=== PATIENT | female | born 1955 | race African-American/Black ===

== ENCOUNTER 2016-12-25 06:01 | Day surgery (SDC) | payer BC ==
--- NOTE | ~2016-12-25 | EGD ---
EGD REPORT [facility] [address] [address] NAME: PHILLY FERNANDEZ : [birth year] STATUS : REG [facility] [place] PAT#: [id number] AGE: 61 ADM/REG DATE : 12/25/16 MR#: [id number] REPORT SERV DATE: 12/25/16 DICTATED BY: JASIEL GALLARDO DATE: 12/25/16 REPORT STATUS : Draft TRANSCRIBED BY: [facility] DATE: 12/25/16 Endoscopy Center Patient Name: Philly Fernandez Date of : 1955 Attending MD: JASIEL GALLARDO MD Procedure Date No Time: 12/25/2016 Procedure: Colonoscopy Indications: Dysphagia, Personal history of malignant neoplasm of the colon Medicines: Propofol per Anesthesia Complications: No immediate complications. Procedure: After I obtained informed consent, the scope was passed under direct vision. Throughout the procedure, the patient's blood pressure, pulse, and oxygen saturations were monitored continuously. The GIF H190 [id number] was introduced through the mouth, and advanced to the second part of duodenum. The upper GI endoscopy was accomplished without difficulty. The patient tolerated the procedure well. After I obtained informed consent, the scope was passed under direct vision. Throughout the procedure, the patient's blood pressure, pulse, and oxygen saturations were monitored continuously. Findings: Internal hemorrhoids were found during retroflexion and were Grade I (internal hemorrhoids that do not prolapse). The colon (entire examined portion) appeared normal. Impression: - Hemorrhoids. Recommendation: - Patient has a contact number available for emergencies. The signs and symptoms of potential delayed complications were discussed with the patient. Return to normal activities tomorrow. Written discharge instructions were provided to the patient. - Clear liquid diet today. - Patient has a contact number available for emergencies. The signs and symptoms of potential delayed complications were discussed with the patient. Return to normal activities tomorrow. Written discharge instructions were provided to the patient. - Continue present medications. - Discharge patient to home (ambulatory). - Repeat colonoscopy in 3 years for surveillance. EGD REPORT [facility] [address] [place]. [address] NAME: PHILLY FERNANDEZ : [birth year] STATUS : REG [facility]#: [id number] AGE: 61 ADM/REG DATE : 12/25/16 MR#: [id number] REPORT SERV DATE: 12/25/16 DICTATED BY: JASIEL GALLARDO DATE: 12/25/16 REPORT STATUS : Draft TRANSCRIBED BY: [employer] DATE: 12/25/16 Diagnosis Code(s): --- Professional --- K64.9, Unspecified hemorrhoids Z85.038, Personal history of other malignant neoplasm of large intestine Jasiel Gallardo MD JASIEL GALLARDO MD 12/25/2016 8:03 AM Number of Addenda: 0 Note Initiated On: 12/25/2016 7:35 AM Scope Withdrawal Time 0 hours 7 minutes 11 seconds [address] [facility] [place] [address]
--- NOTE | ~2016-12-25 | EGD ---
EGD REPORT [facility] [address] [address] NAME: PHILLY FERNANDEZ : [birth year] STATUS : REG [facility]#: [id number] AGE: 61 ADM/REG DATE : 12/25/16 MR#: [id number] REPORT SERV DATE: 12/25/16 DICTATED BY: JASIEL GALLARDO DATE: 12/25/16 REPORT STATUS : Draft [facility] DATE: 12/25/16 Endoscopy Center Patient Name: Philly Fernandez Date of : 1955 Attending MD: JASIEL GALLARDO MD Procedure Date No Time: 12/25/2016 Procedure: Upper GI endoscopy Indications: Dysphagia, Suspected esophageal reflux Medicines: Propofol per Anesthesia Complications: No immediate complications. Procedure: After obtaining informed consent, the endoscope was passed under direct vision. Throughout the procedure, the patient's blood pressure, pulse, and oxygen saturations were monitored continuously. The PCF [id number] was introduced through the anus and advanced to the second part of duodenum. After obtaining informed consent, the endoscope was passed under direct vision. Throughout the procedure, the patient's blood pressure, pulse, and oxygen saturations were monitored continuously. The upper GI endoscopy was accomplished without difficulty. The patient tolerated the procedure well. The upper GI endoscopy was accomplished without difficulty. The patient tolerated the procedure well. Findings: A medium-sized hiatus hernia was present. A mild Schatzki ring (acquired) was found at the gastroesophageal junction. A guidewire was placed and the scope was withdrawn. Dilation was performed with a Savary dilator with no resistance at 54 Fr. Diffuse mild inflammation characterized by erosions and erythema was found in the stomach. The examined duodenum was normal. Impression: - Hiatus hernia. - Mild Schatzki ring. Dilated. - Chronic gastritis. - Normal examined duodenum. Recommendation: - Patient has a contact number available for emergencies. The signs and symptoms of potential delayed complications were discussed with the patient. Return to normal activities tomorrow. Written discharge instructions were provided to the patient. - Clear liquid diet today. EGD REPORT [address] [address] NAME: PHILLY FERNANDEZ : [birth year] STATUS : REG [facility]#: [id number] AGE: 61 ADM/REG DATE : 12/25/16 MR#: [id number] REPORT SERV DATE: 12/25/16 DICTATED BY: JASIEL GALLARDO. DATE: 12/25/16 REPORT STATUS : Draft TRANSCRIBED BY: [employer] DATE: 12/25/16 Procedure Code(s): --- Professional --- 28714, Esophagogastroduodenoscopy, flexible, transoral; with insertion of guide wire followed by passage of dilator(s) through esophagus over guide wire Diagnosis Code(s): --- Professional --- K44.9, Diaphragmatic hernia without obstruction or gangrene K22.2, Esophageal obstruction K29.50, Unspecified chronic gastritis without bleeding R13.10, Dysphagia, unspecified CPT copyright 2013 [employer]. All rights reserved. The codes documented in this report are preliminary and upon upholstery cleaner review may be revised to meet current compliance requirements. Jasiel Gallardo MD JASIEL GALLARDO MD 12/25/2016 7:51 AM This report has been signed electronically. Number of Addenda: 0 Note Initiated On: 12/25/2016 7:34 AM Scope Withdrawal Time 0 hours 0 minutes 0 seconds [address] [address]
[~2016-12-25 06:01] MED LIST: ALLEGRA180 PO; BUSPAR5 PO; GLUCPH PO; NASACORTAQ NAS; PRAV10 PO; PRINZIDE1 TAB PO; PROAIR HFA INH; PROTONIX PO; QVAR80 MCG INH; SINGULAIR1 PO
== END 2016-12-25 23:59 | disposition home health service (06) ==
LOC: DMU 06:01
PROVIDERS: Internal Medicine Gastroenterology
PROC: 0DJD8ZZ Inspection of Lower Intestinal Tract, Via Natural or Artificial Opening Endoscopic (ICD-10-PCS; principal; 2016-12-25 07:30)
PROC: 0D748ZZ Dilation of Esophagogastric Junction, Via Natural or Artificial Opening Endoscopic (ICD-10-PCS; 2016-12-25 07:30)
DX: Z12.11 Encounter for screening for malignant neoplasm of colon (principal); K64.0 First degree hemorrhoids; K22.2 Esophageal obstruction; K44.9 Diaphragmatic hernia without obstruction or gangrene; K29.50 Unspecified chronic gastritis without bleeding; E78.00 Pure hypercholesterolemia, unspecified; E11.9 Type 2 diabetes mellitus without complications; I10 Essential (primary) hypertension; J45.909 Unspecified asthma, uncomplicated; Z85.038 Personal history of other malignant neoplasm of large intestine; Z90.710 Acquired absence of both cervix and uterus; Z79.899 Other long term (current) drug therapy; Z91.040 Latex allergy status; Z86.010 Personal history of colon polyps
CPT/HCPCS: 82962